=== PATIENT | female | born 1960 | race African-American/Black ===

== ENCOUNTER 2022-02-03 13:43 | Inpatient (IN) | payer OTHER ==
[~2022-02-03] VITALS: Ht 167.6 cm; Wt 81.8 kg
[2022-02-03 17:27] LABS: BASOPHILS % 1.1 % (0.0-2.0); EOSINOPHILS % 13.3 % (0.0-5.0); HEMATOCRIT. 35.1 % (36.0-48.0); HEMOGLOBIN. 11.5 g/dL (12.0-16.0); LYMPHOCYTES % 14.8 % (20.0-50.0); MEAN CORPUSCULAR HEMOGLOBIN 29.7 pg (28.0-32.0); MEAN CORPUSCULAR VOLUME 90.6 fL (81.0-99.0); MEAN PLATELET VOLUME 10.9 fl (7.4-10.4); MONOCYTES % 6.1 % (2.0-8.0); NEUTROPHILS % 64.7 % (40.0-76.0); PLATELET 171 x1000/uL (130-400); RED BLOOD CELL COUNT 3.87 mill/uL (4.2-5.4); RED CELL DISTRIBUTION WIDTH 14.5 % (11.6-14.6)
[2022-02-03 17:29] LABS: INR 1.1; PROTHROMBIN TIME 11.8 sec (9.6-11.0)
[2022-02-03 17:31] LABS: CHLORIDE 107 mEq/L (98-107)
[2022-02-03 17:41] LABS: ETHANOL BLOOD < 10 mg/dL
[2022-02-03] MEDS ORDERED: ACETAMINOPHEN 325MG TABLET PO NR (18:15)
[2022-02-03] MEDS ORDERED: SODIUM CHLORIDE 0.9% 1,000 ML IV ONE (18:15)
[2022-02-03] MEDS ORDERED: VANCOMYCIN 1,000 MG in DEXT 5% WATER 250 ML IV NR (19:30)
[2022-02-03 22:30] VITALS: BP 140/67
[2022-02-03] MEDS ORDERED: ZOLPIDEM TARTRATE 5MG TABLET PO PRN (22:45)
[2022-02-03] MEDS ORDERED: ONDANSETRON HCL 4MG/2ML INJ IV PRN (22:45)
[2022-02-03] MEDS ORDERED: ACETAMINOPHEN 325MG TABLET PO PRN ×2 (22:45)
[2022-02-03] MEDS ORDERED: FLUO20DR3 OT (22:47)
[2022-02-03] MEDS: DIPHENHYDRAMINE 50MG/ML VIAL IV PRN (23:04)
[2022-02-03] MEDS: SODIUM CHLORIDE 0.9% 1,000 ML IV SCH (23:04)
[2022-02-03] MEDS ORDERED: KETOROLAC 30MG/ML VIAL IV PRN (23:15)
[2022-02-03] MEDS ORDERED: IBUPROFEN 200MG TABLET PO PRN (23:45)
[2022-02-03] MEDS ORDERED: METOPROLOL TARTRATE 25MG TABLET PO NR (23:45)
[2022-02-03 23:51] VITALS: BP 144/57
[2022-02-04] VITALS: BP 140/59
[2022-02-04] MEDS ORDERED: NALOXONE HCL 0.4MG/ML VIAL IV PRN (00:15)
[2022-02-04] MEDS: CEFAZOLIN 1000MG PREMIX 50 ML IV SCH ×3 (00:18→14:06)
[2022-02-04] MEDS: MORPHINE SULFATE 4 MG/ML CPJ (NOT FOR IM USE) IV PRN ×2 (00:53→06:43)
[2022-02-04 04:00] VITALS: BP 115/53
[2022-02-04 04:57] LABS: CLARITY URINE CLEAR (CLEAR); COLOR URINE YELLOW (YELLOW); KETONES URINE NEGATIVE (NEGATIVE); LEUKOCYTE ESTERASE URINE TRACE (NEGATIVE); NITRITE URINE NEGATIVE (NEGATIVE); OCCULT BLOOD URINE NEGATIVE (NEGATIVE); PROTEIN URINE TRACE (NEGATIVE); SPECIFIC GRAVITY URINE 1.012 (1.005-1.030)
[2022-02-04 05:13] LABS: *AMPHETAMINES SCREEN URINE NEGATIVE (NEGATIVE); *BARBITURATES SCREEN URINE NEGATIVE (NEGATIVE); *BENZODIAZEPINES SCREEN URINE NEGATIVE (NEGATIVE); *COCAINE SCREEN URINE NEGATIVE (NEGATIVE); CANNABINOID URINE SCREEN NEGATIVE (NEGATIVE); METHADONE URINE SCREEN NEGATIVE (NEGATIVE); OPIATES URINE SCREEN NEGATIVE (NEGATIVE); PHENCYCLIDINE URINE SCREEN NEGATIVE (NEGATIVE)
[2022-02-04] MEDS: DIPHENHYDRAMINE 50MG/ML VIAL IV PRN ×2 (05:54→21:09)
[2022-02-04] MEDS: TRIAMCINOLONE ACETONIDE 0.1% CREAM 15GM TOP SCH (07:14)
[2022-02-04 07:36] LABS: HEMATOCRIT. 36.5 % (36.0-48.0); HEMOGLOBIN. 11.7 g/dL (12.0-16.0); MEAN CORPUSCULAR HEMOGLOBIN 29.4 pg (28.0-32.0); MEAN CORPUSCULAR VOLUME 91.9 fL (81.0-99.0); MEAN PLATELET VOLUME 10.3 fl (7.4-10.4); PLATELET 163 x1000/uL (130-400); RED BLOOD CELL COUNT 3.97 mill/uL (4.2-5.4); RED CELL DISTRIBUTION WIDTH 14.4 % (11.6-14.6)
[2022-02-04 08:00] VITALS: BP 118/62
[2022-02-04 08:06] LABS: PHOSPHORUS 2.6 mg/dL (2.5-4.9); T4 FREE 1.01 ng/dL (0.76-1.46)
[2022-02-04] MEDS: METOPROLOL TARTRATE 25MG TABLET PO SCH ×2 (09:28→21:00)
[2022-02-04] MEDS: ENOXAPARIN 40MG/0.4ML SYR SUBCUT SCH (09:29)
[2022-02-04] MEDS: SODIUM CHLORIDE 0.9% 1,000 ML IV SCH ×2 (09:29→21:08)
[2022-02-04 12:00] VITALS: BP 115/56
[2022-02-04 13:32] LABS: PLATELET ESTIMATE NORMAL
[2022-02-04 16:00] VITALS: BP 116/52
[2022-02-04] MEDS ORDERED: CEFTRIAXONE 2 G PREMIX 50 ML IV SCH (16:30)
[2022-02-04] MEDS ORDERED: CLINDAMYCIN 600 MG in DEXTROSE 5% WATER 50 ML IV SCH (16:30)
[2022-02-04] MEDS: CLINDAMYCIN 600MG PREMIX 50 ML IV SCH (18:33)
[2022-02-04 20:00] VITALS: BP 102/48
[2022-02-04] MEDS: VANCOMYCIN 1G PREMIX 200 ML IV SCH (21:09)
[2022-02-05] VITALS: BP 124/38
[2022-02-05] MEDS: CEFTRIAXONE 2 G in DEXTROSE 5% WATER 50 ML IV SCH ×2 (01:21→21:27)
[2022-02-05] MEDS: ACETAMINOPHEN 650MG/20.3ML UDC PO PRN ×2 (01:23→23:25)
[2022-02-05] MEDS: DIPHENHYDRAMINE 50MG/ML VIAL IV PRN (02:54)
[2022-02-05] MEDS: CLINDAMYCIN 600MG PREMIX 50 ML IV SCH ×3 (02:54→18:45)
[2022-02-05 04:00] VITALS: BP_SYST 111; BP_SYST 127; BP_DIAS 49; BP_DIAS 54
[2022-02-05] MEDS: MORPHINE SULFATE 4 MG/ML CPJ (NOT FOR IM USE) IV PRN (06:37)
[2022-02-05] MEDS: SODIUM CHLORIDE 0.9% 1,000 ML IV SCH ×2 (06:38→12:19)
[2022-02-05] MEDS: TRIAMCINOLONE ACETONIDE 0.1% CREAM 15GM TOP SCH ×3 (06:39→21:28)
[2022-02-05 07:52] LABS: HEMATOCRIT. 35.4 % (36.0-48.0); HEMOGLOBIN. 11.3 g/dL (12.0-16.0); MEAN CORPUSCULAR HEMOGLOBIN 29.1 pg (28.0-32.0); MEAN CORPUSCULAR VOLUME 91.3 fL (81.0-99.0); MEAN PLATELET VOLUME 10.5 fl (7.4-10.4); PLATELET 140 x1000/uL (130-400); RED BLOOD CELL COUNT 3.88 mill/uL (4.2-5.4); RED CELL DISTRIBUTION WIDTH 14.4 % (11.6-14.6)
[2022-02-05 08:00] VITALS: BP 111/45
[2022-02-05] MEDS: METOPROLOL TARTRATE 25MG TABLET PO SCH ×3 (09:00→21:00)
[2022-02-05 12:00] VITALS: BP 94/49
[2022-02-05] MEDS: ENOXAPARIN 40MG/0.4ML SYR SUBCUT SCH (15:15)
[2022-02-05] MEDS: VANCOMYCIN 1G PREMIX 200 ML IV SCH (15:16)
[2022-02-05 20:00] VITALS: BP 102/45
[2022-02-06] VITALS: BP 96/47
[2022-02-06] MEDS: SODIUM CHLORIDE 0.9% 1,000 ML IV SCH ×3 (00:45→20:45)
[2022-02-06] MEDS: CLINDAMYCIN 600MG PREMIX 50 ML IV SCH ×3 (01:45→19:26)
[2022-02-06 04:00] VITALS: BP_SYST 102; BP_SYST 107; BP_DIAS 57; BP_DIAS 60
[2022-02-06 08:00] VITALS: BP 126/58
[2022-02-06] MEDS: VANCOMYCIN 1G PREMIX 200 ML IV SCH (09:15)
[2022-02-06] MEDS: METOPROLOL TARTRATE 25MG TABLET PO SCH ×2 (09:16→21:02)
[2022-02-06] MEDS: ENOXAPARIN 40MG/0.4ML SYR SUBCUT SCH (09:17)
[2022-02-06 10:06] LABS: PLATELET ESTIMATE NORMAL
[2022-02-06 12:00] VITALS: BP 99/59
[2022-02-06 14:00] VITALS: BP 135/64
[2022-02-06] MEDS: TRIAMCINOLONE ACETONIDE 0.1% CREAM 15GM TOP SCH ×2 (19:29→21:02)
[2022-02-06 20:00] VITALS: BP 116/60
[2022-02-06] MEDS: CEFTRIAXONE 2 G in DEXTROSE 5% WATER 50 ML IV SCH (21:02)
[2022-02-07] VITALS: BP 133/56
[2022-02-07] MEDS: CLINDAMYCIN 600MG PREMIX 50 ML IV SCH ×3 (02:29→18:12)
[2022-02-07 04:00] VITALS: BP_SYST 110; BP_SYST 129; BP_DIAS 59; BP_DIAS 65
[2022-02-07] MEDS: SODIUM CHLORIDE 0.9% 1,000 ML IV SCH (05:43)
[2022-02-07 07:42] LABS: HEMATOCRIT. 30.7 % (36.0-48.0); HEMOGLOBIN. 10.4 g/dL (12.0-16.0); MEAN CORPUSCULAR HEMOGLOBIN 29.9 pg (28.0-32.0); MEAN CORPUSCULAR VOLUME 88.7 fL (81.0-99.0); MEAN PLATELET VOLUME 10.2 fl (7.4-10.4); PLATELET 121 x1000/uL (130-400); RED BLOOD CELL COUNT 3.47 mill/uL (4.2-5.4); RED CELL DISTRIBUTION WIDTH 14.5 % (11.6-14.6)
[2022-02-07 08:00] VITALS: BP 121/54
[2022-02-07 08:35] LABS: CHLORIDE 114 mEq/L (98-107)
[2022-02-07] MEDS: TRIAMCINOLONE ACETONIDE 0.1% CREAM 15GM TOP SCH ×2 (09:35→21:06)
[2022-02-07] MEDS: ENOXAPARIN 40MG/0.4ML SYR SUBCUT SCH (09:35)
[2022-02-07] MEDS: METOPROLOL TARTRATE 25MG TABLET PO SCH ×2 (09:36→21:06)
[2022-02-07 12:00] VITALS: BP 126/65
[2022-02-07 14:20] LABS: PLATELET ESTIMATE DECREASED
[2022-02-07 16:00] VITALS: BP 110/65
[2022-02-07 20:00] VITALS: BP 128/65
[2022-02-07] MEDS: CEFTRIAXONE 2 G in DEXTROSE 5% WATER 50 ML IV SCH (21:06)
[2022-02-08] VITALS: BP 129/66
[2022-02-08] MEDS: CLINDAMYCIN 600MG PREMIX 50 ML IV SCH ×3 (02:00→17:24)
[2022-02-08 04:00] VITALS: BP 118/89
[2022-02-08 08:00] VITALS: BP 132/66
[2022-02-08] MEDS: TRIAMCINOLONE ACETONIDE 0.1% CREAM 15GM TOP SCH ×2 (09:32→22:13)
[2022-02-08] MEDS: ENOXAPARIN 40MG/0.4ML SYR SUBCUT SCH (09:33)
[2022-02-08] MEDS: METOPROLOL TARTRATE 25MG TABLET PO SCH ×2 (09:33→22:14)
[2022-02-08 12:00] VITALS: BP 128/77
[2022-02-08 16:00] VITALS: BP 136/79
[2022-02-08 20:00] VITALS: BP_SYST 113; BP_DIAS 68; BP_DIAS 88
[2022-02-08] MEDS: CEFTRIAXONE 2 G in DEXTROSE 5% WATER 50 ML IV SCH (21:24)
[2022-02-09] VITALS: BP 133/78
[2022-02-09] MEDS: CLINDAMYCIN 600MG PREMIX 50 ML IV SCH ×3 (01:36→18:03)
[2022-02-09 04:00] VITALS: BP 144/65
[2022-02-09 06:22] LABS: BASOPHILS % 0.8 % (0.0-2.0); EOSINOPHILS % 10.4 % (0.0-5.0); HEMATOCRIT. 35.5 % (36.0-48.0); HEMOGLOBIN. 11.7 g/dL (12.0-16.0); LYMPHOCYTES % 21.3 % (20.0-50.0); MEAN CORPUSCULAR HEMOGLOBIN 29.6 pg (28.0-32.0); MEAN CORPUSCULAR VOLUME 89.9 fL (81.0-99.0); MONOCYTES % 7.2 % (2.0-8.0); NEUTROPHILS % 60.3 % (40.0-76.0); RED BLOOD CELL COUNT 3.94 mill/uL (4.2-5.4); RED CELL DISTRIBUTION WIDTH 14.5 % (11.6-14.6)
[2022-02-09 08:00] VITALS: BP_SYST 124; BP_SYST 127; BP_DIAS 36; BP_DIAS 82
[2022-02-09 08:36] LABS: CHLORIDE 109 mEq/L (98-107)
[2022-02-09] MEDS: ENOXAPARIN 40MG/0.4ML SYR SUBCUT SCH (09:52)
[2022-02-09] MEDS: METOPROLOL TARTRATE 25MG TABLET PO SCH ×2 (09:52→22:43)
[2022-02-09] MEDS: TRIAMCINOLONE ACETONIDE 0.1% CREAM 15GM TOP SCH ×2 (09:52→22:43)
[2022-02-09 10:19] LABS: PLATELET 134 x1000/uL (130-400)
[2022-02-09 12:00] VITALS: BP 124/72
[2022-02-09] MEDS ORDERED: METHYLPREDNISOLONE SOD SUCC 125 MG/2 ML VIAL IV NR (15:30)
[2022-02-09 16:00] VITALS: BP 117/68
[2022-02-09 20:00] VITALS: BP 138/68
[2022-02-09] MEDS: CEFTRIAXONE 2 G in DEXTROSE 5% WATER 50 ML IV SCH (22:42)
[2022-02-10] VITALS: BP 148/73
[2022-02-10 04:33] VITALS: BP 130/53
[2022-02-10] MEDS: ENOXAPARIN 40MG/0.4ML SYR SUBCUT SCH (10:10)
[2022-02-10] MEDS: TRIAMCINOLONE ACETONIDE 0.1% CREAM 15GM TOP SCH ×2 (10:10→21:00)
[2022-02-10] MEDS: METOPROLOL TARTRATE 25MG TABLET PO SCH ×2 (10:11→21:19)
[2022-02-10 12:15] VITALS: BP 123/64
[2022-02-10] MEDS ORDERED: POTASSIUM CHLORIDE 20MEQ TABLET SR PO NR (15:45)
[2022-02-10] MEDS ORDERED: FUROSEMIDE 40MG/4ML VIAL IVP NR (15:45)
[2022-02-10] MEDS ORDERED: METOLAZONE 2.5MG TABLET PO NR (15:45)
[2022-02-10] MEDS ORDERED: METHYLPREDNISOLONE SOD SUCC 125 MG/2 ML VIAL IV NR (15:45)
[2022-02-10 16:42] VITALS: BP 140/72
[2022-02-10 20:00] VITALS: BP 146/73
[2022-02-11] VITALS: BP 144/66
[2022-02-11 04:00] VITALS: BP 136/45
[2022-02-11 07:08] LABS: BASOPHILS % 0.4 % (0.0-2.0); HEMATOCRIT. 34.5 % (36.0-48.0); HEMOGLOBIN. 11.3 g/dL (12.0-16.0); LYMPHOCYTES % 16.3 % (20.0-50.0); MEAN CORPUSCULAR HEMOGLOBIN 29.5 pg (28.0-32.0); MEAN PLATELET VOLUME 11.1 fl (7.4-10.4); MONOCYTES % 3.8 % (2.0-8.0); NEUTROPHILS % 79.5 % (40.0-76.0); PLATELET 165 x1000/uL (130-400); RED BLOOD CELL COUNT 3.83 mill/uL (4.2-5.4); RED CELL DISTRIBUTION WIDTH 14.3 % (11.6-14.6)
[2022-02-11 07:16] LABS: CHLORIDE 110 mEq/L (98-107)
[2022-02-11 07:35] LABS: PHOSPHORUS 3.5 mg/dL (2.5-4.9)
[2022-02-11 08:00] VITALS: BP 138/64
[2022-02-11] MEDS: TRIAMCINOLONE ACETONIDE 0.1% CREAM 15GM TOP SCH ×2 (09:00→21:20)
[2022-02-11] MEDS: ENOXAPARIN 40MG/0.4ML SYR SUBCUT SCH (09:51)
[2022-02-11] MEDS: METOPROLOL TARTRATE 25MG TABLET PO SCH ×2 (09:51→21:23)
[2022-02-11] MEDS ORDERED: POTASSIUM CHLORIDE 20MEQ TABLET SR PO NR (11:00)
[2022-02-11] MEDS ORDERED: PREDNISONE 20MG TABLET PO NR (11:00)
[2022-02-11] MEDS: FUROSEMIDE 40MG/4ML VIAL IVP NR ×2 (11:16→14:51)
[2022-02-11] MEDS ORDERED: METOLAZONE 5MG TABLET PO NR (11:30)
[2022-02-11 12:00] VITALS: BP 134/62
[2022-02-11] MEDS ORDERED: MAGNESIUM 2 G PREMIX 50 ML IV NR (12:00)
[2022-02-11 16:00] VITALS: BP 134/66
[2022-02-11 20:00] VITALS: BP 150/76
[2022-02-12] VITALS (7 sets, daily range): BP systolic 114–137; BP diastolic 47–74
[2022-02-12] MEDS: TRIAMCINOLONE ACETONIDE 0.1% CREAM 15GM TOP SCH ×2 (09:00→21:27)
[2022-02-12] MEDS: METOPROLOL TARTRATE 25MG TABLET PO SCH ×2 (09:32→21:27)
[2022-02-12] MEDS: ENOXAPARIN 40MG/0.4ML SYR SUBCUT SCH (09:33)
[2022-02-13] VITALS: BP 135/66
[2022-02-13 04:00] VITALS: BP 123/79
[2022-02-13 08:27] VITALS: BP 124/67
[2022-02-13] MEDS: METOPROLOL TARTRATE 25MG TABLET PO SCH ×2 (08:57→20:35)
[2022-02-13] MEDS: ENOXAPARIN 40MG/0.4ML SYR SUBCUT SCH (08:57)
[2022-02-13] MEDS: TRIAMCINOLONE ACETONIDE 0.1% CREAM 15GM TOP SCH ×2 (08:58→20:35)
[2022-02-13 11:49] VITALS: BP 121/65
[2022-02-13 15:53] VITALS: BP 101/60
[2022-02-13 20:00] VITALS: BP 112/56
[2022-02-14] VITALS (7 sets, daily range): BP systolic 109–144; BP diastolic 49–74
[2022-02-14] MEDS: ENOXAPARIN 40MG/0.4ML SYR SUBCUT SCH (09:42)
[2022-02-14] MEDS: TRIAMCINOLONE ACETONIDE 0.1% CREAM 15GM TOP SCH (09:42)
[2022-02-14] MEDS: METOPROLOL TARTRATE 25MG TABLET PO SCH ×2 (09:47→20:36)
[2022-02-14] MEDS: PANTOT AC/MIN OIL/PET HY-PHL OINT (AQUAPHOR) TOP SCH (19:35)
[2022-02-15] VITALS: BP 149/78
[2022-02-15 08:00] VITALS: BP 129/77
[2022-02-15] MEDS: ENOXAPARIN 40MG/0.4ML SYR SUBCUT SCH (09:35)
[2022-02-15] MEDS: METOPROLOL TARTRATE 25MG TABLET PO SCH ×2 (09:35→21:13)
[2022-02-15] MEDS: PANTOT AC/MIN OIL/PET HY-PHL OINT (AQUAPHOR) TOP SCH ×2 (09:36→17:00)
[2022-02-15 12:00] VITALS: BP 113/67
[2022-02-15 16:00] VITALS: BP 127/72
[2022-02-15 20:00] VITALS: BP 126/73
[2022-02-15] MEDS: TRIAMCINOLONE ACETONIDE 0.1% CREAM 15GM TOP SCH (21:13)
[2022-02-16] VITALS: BP 127/82
[2022-02-16 04:00] VITALS: BP 104/56
[2022-02-16 08:00] VITALS: BP 134/73
[2022-02-16] MEDS: METOPROLOL TARTRATE 25MG TABLET PO SCH ×2 (09:22→20:44)
[2022-02-16] MEDS: ENOXAPARIN 40MG/0.4ML SYR SUBCUT SCH (09:24)
[2022-02-16] MEDS: TRIAMCINOLONE ACETONIDE 0.1% CREAM 15GM TOP SCH ×2 (09:30→20:43)
[2022-02-16] MEDS: PANTOT AC/MIN OIL/PET HY-PHL OINT (AQUAPHOR) TOP SCH ×2 (09:30→17:00)
[2022-02-16 12:00] VITALS: BP 105/66
[2022-02-16 16:00] VITALS: BP 124/66
[2022-02-16 20:00] VITALS: BP 107/77
[2022-02-17] VITALS: BP 126/57
[2022-02-17 04:00] VITALS: BP 125/70
[2022-02-17 08:00] VITALS: BP 107/53
[2022-02-17] MEDS: TRIAMCINOLONE ACETONIDE 0.1% CREAM 15GM TOP SCH (09:14)
[2022-02-17] MEDS: PANTOT AC/MIN OIL/PET HY-PHL OINT (AQUAPHOR) TOP SCH (09:15)
[2022-02-17] MEDS: ENOXAPARIN 40MG/0.4ML SYR SUBCUT SCH (09:17)
[2022-02-17] MEDS: METOPROLOL TARTRATE 25MG TABLET PO SCH (09:46)
[2022-02-17 12:00] VITALS: BP 98/36
[2022-02-17 13:50] VITALS: BP 98/36
== END 2022-02-17 15:26 | disposition home health service (06) | DRG 871 ==
LOC: ER 13:43 → 7EST 19:54 → EDBEDREQSVC 20:06 → EDBEDREQ 20:06 → EDBEDREQTM 20:06 → 7EST 22:02 → 6EST 02-15 10:38
PROVIDERS: ADMIT Internal Medicine; ATTEND Internal Medicine
PROC: B54MZZA Ultrasonography of Right Upper Extremity Veins, Guidance (ICD-10-PCS; principal; 2022-02-05)
PROC: 05HY33Z Insertion of Infusion Device into Upper Vein, Percutaneous Approach (ICD-10-PCS; 2022-02-05)
DX: A41.9 Sepsis, unspecified organism (principal); E43 Unspecified severe protein-calorie malnutrition; L03.90 Cellulitis, unspecified; D72.10 Eosinophilia, unspecified; Z20.822 Contact with and (suspected) exposure to COVID-19; I10 Essential (primary) hypertension; L53.9 Erythematous condition, unspecified; Z60.2 Problems related to living alone; L40.9 Psoriasis, unspecified; Z75.1 Person awaiting admission to adequate facility elsewhere; Z82.49 Family history of ischemic heart disease and other diseases of the circulatory system; Z83.3 Family history of diabetes mellitus; Z68.29 Body mass index [BMI] 29.0-29.9, adult
CPT/HCPCS: 36415; 36573; 71045; 80048; 80053; 80202; 80305; 80320; 81003; 83605; 83735; 83880; 84100; 84145; 84439; 84443; 84484; 85025; 86850; 86900; 87426; 93005; 93306; 93970; 97162; 97164; 97166; 97530; 99285; A6261; C1725; C1893; J0690; J0696; J1200; J1650; J1885; J1940; J2270; J2930; J3370; J3475; J3490; J7030; J7060; J7512; G0480